=== PATIENT | female | born 1970 | race American Indian/Alaskan Native ===

== ENCOUNTER 2021-05-29 10:41 | Outpatient (CLI) | payer OTHER ==
--- NOTE | 2021-05-29 13:06 | XRay Report ---
Bilateral knee radiographs, 3 views of each knee provided. HISTORY: Knee pain COMPARISON: None FINDINGS: Right knee: No acute fracture or malalignment. There is no significant arthritis. No significant join t effusion. Soft tissues are unremarkable. Left knee: Tiny tricompartmental osteophytes, greatest along the medial compartment, suggesting mild arthritis. No acute fracture or malalignment. No significant joint effusion. IMPRESSION: Mild left knee osteoarthritis. No acute process. Signer Name: Kenroy Palacio MD Signed: 05/29/2021 1:02 PM Workstation Name: [id number]
--- NOTE | 2021-05-29 13:07 | XRay Report ---
Lumbar spine, 3 views HISTORY: Low back pain COMPARISON: None. FINDINGS: Lumbar spinal alignment is normal. Vertebral body heights are maintained. There is no evide nce of fracture. Lumbar disc spaces are maintained with small marginal osteophytes, greatest at L4-L5 anteriorly. There is mild/moderate lower lumbar facet arthropathy. IMPRESSION: Mild to moderate lower lumbar spondylosis, as above. No acute process. Signer Name: Kenroy Palacio MD Signed: 05/29/2021 1:02 PM Workstation Name: [id number]
== END 2021-05-29 10:42 | disposition home or self-care (01) ==
LOC: XRAY 10:41
PROVIDERS: ATTEND Internal Medicine
DX: M17.0 Bilateral primary osteoarthritis of knee (principal); M47.816 Spondylosis without myelopathy or radiculopathy, lumbar region; M25.78 Osteophyte, vertebrae; M25.762 Osteophyte, left knee
CPT/HCPCS: 72100